=== PATIENT | female | born 1975 | race Caucasian/White ===

== ENCOUNTER 2018-04-23 11:36 | Inpatient (IN) | payer BC ==
[2018-04-23 13:00] VITALS: BMI 34.2
--- NOTE | 2018-04-23 17:07 | HP ---
COWS - Scale Resting Pulse: 0= [place] 80 or Below Sweatin=Flushed/Facial Moisture Restless Observation: 1= Difficult to Sit Still Pupil Size: 2= Moderately Dilated Bone or Joint Aches: 2= Severe Diffuse Aches Runny Nose/ Eye Tearin= None GI Upset > 30mins: 2= Nausea/Diarrhea Tremor Observation: 2= Slight Tremor Visible Yawning Observation: 1= 1-2x During Session Anxiety or Irritability: 1=Feels Anxious/Irritable Goose Flesh Skin: 0=Smooth Skin COWS Score: 13 Admission [facility] Chief Complaint: Heroin withdrawal symptoms. Allergies/Adverse Reactions: Allergies Allergy/AdvReac Type Severity Reaction Status Date / Time ibuprofen [From Motrin] Allergy Severe Hives Verified 04/23/18 16:18 Penicillins Allergy Severe Difficulty Verified 04/23/18 16:18 Breathing History of Present Illness: Patient presents for detox for Heroin withdrawal symptoms. Patient started injecting Heroin at age 33. Patient injects 6-7 bags daily. Last time she used was this morning. Patient denies hx of overdose but has hx of seizures. Last seizure 2 weeks ago. PMH includes HTN, Depression, SZD, Hep C (untreated), anxiety and DM. Denies SI/HI and/or suicide attempts. Last attempt at detox was years ago. Longest period of sobriety 9 months. Pt smokes cocaine since age 19 and smokes 7 bags daily. Last time she smoked was 3 days ago. Exam Limitations: No Limitations - Ebola screening Have you traveled outside of the country in the last 21 days: No Have you had contact with anyone from an Ebola affected area: No Have you been sick,other than usual withdrawal symptoms: No Do you have a fever: No - Review of Systems Constitutional: Chills, Night Sweats, Changes in sleep EENT: reports: No Symptoms Reported Respiratory: reports: No Symptoms reported Cardiac: reports: No Symptoms Reported GI: reports: Diarrhea, Nausea, Poor Fluid Intake, Abdominal cramping : reports: No Symptoms Reported Musculoskeletal: reports: Back Pain, Joint Pain, Muscle Pain Integumentary: reports: Sweating Neuro: reports: Headache, Seizure, Tremors Endocrine: reports: No Symptoms Reported Hematology: reports: No Symptoms Reported Psychiatric: reports: Orientated x3, Anxious, Depressed Patient History - Patient Medical History Hx Anemia: No Hx Asthma: Yes (Pt is on MDI) Hx Chronic Obstructive Pulmonary Disease (COPD): No Hx Cancer: No Hx Cardiac Disorders: No Hx Congestive Heart Failure: No Hx Hypertension: Yes (not on meds.) Hx Hypercholesterolemia: No Hx Pacemaker: No HX Cerebrovascular Accident: No Hx Seizures: Yes (last seizure 2 weeks ago) Hx Dementia: No Hx Diabetes: Yes Hx Gastrointestinal Disorders: No Hx Liver Disease: No Hx Genitourinary Disorders: No Hx Sexually Transmitted Disorders: No Hx Renal Disease (ESRD): No Hx Thyroid Disease: No Hx Human Immunodeficiency Virus (HIV): No Hx Hepatitis C: Yes (not treated) Hx Depression: Yes Hx Suicide Attempt: Yes (Tried to overdose on pills at age 16 yrs) Hx Bipolar Disorder: No Hx Schizophrenia: No - Patient Surgical History Past Surgical History: Yes Hx Appendectomy: Yes (1995) Other Surgical History: Tubal ligation 1999 - PPD History Previous Implant?: Yes Documented Results: Negative w/o proof Implanted On Prior R Admission?: No PPD to be Administered?: Yes - Reproductive History Patient is a Female of Child Bearing Age (11 -55 yrs old): Yes Patient : No - Smoking Cessation Smoking history: Current every day smoker Have you smoked in the past 12 months: Yes Aproximately how many cigarettes per day: 8 Hx Chewing Tobacco Use: No Initiated information on smoking cessation: Yes 'Breaking Loose' booklet given: 04/23/18 - Substance & Tx. History Hx Alcohol Use: No Hx Substance Use: Yes Substance Use Type: Cocaine, Heroin Hx Substance Use Treatment: Yes - Substances Abused Heroin Route: Injection Frequency: Daily Amount used: 6-7 bags Age of first use: 33 Date of Last Use: 04/23/18 Cocaine Route: Smoking Frequency: Daily Amount used: 5-6 bags Age of first use: 19 Date of Last Use: 04/20/18 Family Disease History - Family Disease History Family History: Denies Admission Physical Exam BHS - Vital Signs Vital Signs: Vital Signs - 24 hr 04/23/18 12:58 Temperature 98.3 F Pulse Rate 64 Respiratory 18 Rate Blood Pressure 116/67 - Physical General Appearance: Yes: Disheveled, Tremorous, Sweating, Anxious HEENTM: Yes: EOMI, Hearing grossly Normal, Normal ENT Inspection, Normocephalic , Normal Voice, RADHA, Pharynx Normal Respiratory: Yes: Chest Non-Tender, Lungs Clear, Normal Breath Sounds, No Respiratory Distress, No Accessory Muscle Use Neck: Yes: No masses,lesions,Nodules, Supple Breast: Yes: Breast Exam Deferred Cardiology: Yes: Regular Rhythm, Regular Rate, S1, S2 Abdominal: Yes: Normal Bowel Sounds, Non Tender, Soft Genitourinary: Yes: Within Normal Limits Back: Yes: Muscle Spasm Musculoskeletal: Yes: full range of Motion, Gait Steady, Back pain, Muscle Pain Extremities: Yes: Normal Range of Motion, Non-Tender, Tremors Neurological: Yes: substance abuse clinician II-XII NML intact, Fully Oriented, Alert, Motor Strength 5/5, Depressed Affect Integumentary: Yes: Normal Color, Warm, Moist, Track Hein Lymphatic: Yes: Within Normal Limits - Diagnostic (1) Opioid dependence with withdrawal Current Visit: Yes Status: Acute (2) Diabetes 1.5, managed as type 2 Current Visit: Yes Status: Chronic (3) HTN (hypertension) Current Visit: Yes Status: Chronic Qualifiers: Hypertension type: essential hypertension Qualified Code(s): I10 - Essential (primary) hypertension (4) Depression (emotion) Current Visit: Yes Status: Chronic Qualifiers: Depression Type: unspecified Qualified Code(s): F32.9 - Major depressive disorder, single episode, unspecified (5) Anxiety Current Visit: Yes Status: Acute (6) Hep C w/o coma, chronic Current Visit: Yes Status: Acute (7) Cocaine dependence Current Visit: Yes Status: Acute Qualifiers: Substance use status: uncomplicated Qualified Code(s): F14.20 - Cocaine dependence, uncomplicated Cleared for Admission [facility] - Detox or Rehab [facility] Level of Care: Medically Managed Detox Regimen/Protocol: Methadone [facility] Breath Alcohol Content Breath Alcohol Content: 0 Urine Pregancy Test - Result Urine Test Results: Negative- NO Line Present Urine Drug Screen - Results Drug Screen Negative: No Urine Drug Screen Results: ANGELINA-Cocaine, OPI-Opiates, OXY-Oxycodone
[2018-04-23] MEDS ORDERED: IBUPROFEN 400 MG TABLET (FP) PO PRN (17:25)
[2018-04-23] MEDS ORDERED: LOPERAMIDE HCL 2 MG CAPSULE PO PRN (17:25)
[2018-04-23] MEDS ORDERED: MAG HYDROX/AL HYDROX/SIMETH 30 ML UNIT-DOSE CUP PO PRN (17:25)
[2018-04-23] MEDS ORDERED: guaiFENesin/D-METHORPHAN HB 10 ML UNIT-DOSE CUPS PO PRN (17:25)
[2018-04-23] MEDS ORDERED: hydrOXYzine PAMOATE 50 MG CAPSULE (FP) PO PRN (17:25)
[2018-04-23] MEDS ORDERED: P-EPHED 60MG/TRIPROLIDI 2.5MG TABLET PO PRN (17:25)
[2018-04-23] MEDS ORDERED: MAGNESIUM HYDROX 2400MG/30ML ORAL SUSPENSION 30 ML CUP PO PRN (17:25)
[2018-04-23] MEDS ORDERED: MENTHOL/PHENOL 1 EACH UD MM PRN (17:25)
[2018-04-23] MEDS ORDERED: NICOTINE POLACRILEX 2 MG GUM BC PRN (17:25)
[2018-04-23] MEDS ORDERED: MAGNESIUM CITRATE 300 ML BOTTLE PO PRN (17:25)
[2018-04-23] MEDS ORDERED: ALBUTEROL SO4 8 GM HFA INHALER IH PRN (17:26)
[2018-04-23] MEDS ORDERED: METHADONE HCL 10 MG TABLET (FOR DETOX USE ONLY) PO ONE ×2 (18:15→23:00)
[2018-04-23] MEDS ORDERED: MELATONIN 5 MG TABLETS PO PRN (22:00)
[2018-04-23 22:47] LABS: URINE APPEARANCE SLCLOUDY; URINE BILIRUBIN NEGATIVE (<2.0 mg/dL); URINE COLOR YELLOW; URINE GLUCOSE (UA) NEGATIVE (NEGATIVE); URINE KETONE NEGATIVE (NEGATIVE); URINE LEUK ESTERASE NEGATIVE (NEGATIVE); URINE NITRITE NEGATIVE (NEGATIVE); URINE PROTEIN NEGATIVE (NEGATIVE); URINE UROBILINOGEN NEGATIVE mg/dL (0.2-1.0)
[2018-04-24] MEDS: ATORVASTATIN CA 10 MG TABLET (FP) PO SCH ×2 (00:39→22:42)
[2018-04-24] MEDS: levETIRAcetam 500 MG TABLET (FP) PO SCH ×3 (00:39→22:42)
[2018-04-24] MEDS: THIAMINE HCL 100 MG TABLET (FP) PO SCH ×2 (00:45→22:42)
[2018-04-24] MEDS ORDERED: cloNIDine HCL 0.1 MG TABLET PO ONE ×2 (06:55→19:01)
--- NOTE | 2018-04-24 06:58 | PN ---
BHS Progress Note Note: Patient's blood pressure is B/P 154/104. Patient is asymptomatic Laboratory Last Values Urine Color Yellow 04/23/18 21:30 Urine Appearance Slcloudy 04/23/18 21:30 Urine pH 6.0 (5.0-8.0) 04/23/18 21:30 Ur Specific [place] 1.019 (1.001-1.035) 04/23/18 21:30 Urine Protein Negative (NEGATIVE) 04/23/18 21:30 Urine Glucose (UA) Negative (NEGATIVE) 04/23/18 21:30 Urine Ketones Negative (NEGATIVE) 04/23/18 21:30 Urine Blood Negative (NEGATIVE) 04/23/18 21:30 Urine Nitrite Negative (NEGATIVE) 04/23/18 21:30 Urine Bilirubin Negative (<2.0 mg/dL) 04/23/18 21:30 Urine Urobilinogen Negative mg/dL (0.2-1.0) 04/23/18 21:30 Ur Leukocyte Esterase Negative (NEGATIVE) 04/23/18 21:30 Action: Clonidine 0.1mg tablet oral ordered
[2018-04-24] MEDS ORDERED: METHADONE HCL 10 MG TABLET (FOR DETOX USE ONLY) PO ONE (10:00)
[2018-04-24] MEDS: diazePAM 5 MG TABLET PO PRN (10:20)
[2018-04-24] MEDS: PRENATAL VITAMINS W/ FOLIC ACID TABLET (FP) PO SCH (10:20)
[2018-04-24] MEDS: ACETAMINOPHEN 325 MG TABLET (FP) PO PRN (10:21)
[2018-04-24] MEDS: NICOTINE 21 MG/24 HOURS TOPICAL PATCH TD SCH (10:21)
[2018-04-24 10:27] LABS: HEMATOCRIT 43.7 % (32.4-45.2); HEMOGLOBIN 14.5 GM/dL (10.7-15.3); MCH 27.5 pg (25.7-33.7); MCHC 33.1 g/dl (32.0-36.0); MEAN CELL VOLUME 82.9 fl (80-96); MEAN PLT VOLUME 9.5 fl (7.5-11.1); PLATELET COUNT 198 K/MM3 (134-434); RBC 5.27 M/mm3 (3.60-5.2); RDW 14.4 % (11.6-15.6); WHITE BLOOD COUNT 9.3 K/mm3 (4.0-10.0)
--- NOTE | 2018-04-24 11:07 | PN ---
BHS COWS - Scale Resting Pulse: 0= [place] 80 or Below Sweatin= Chills/Flushing Restless Observation: 3= Extraneous Movement Pupil Size: 1= Pupils >than Normal Bone or Joint Aches: 2= Severe Diffuse Aches Runny Nose/ Eye Tearin= Runny Nose/Eyes GI Upset > 30mins: 3= Vomiting/Diarrhea Tremor Observation of Outstretched Hands: 2= Slight Tremor Visible Yawning Observation: 1= 1-2x During Session Anxiety or Irritability: 2=Irritable/Anxious Goose Flesh Skin: 0=Smooth Skin COWS Score: 17 S Progress Note (SOAP) Subjective: alert,irritable,anxious,interrupted sleep,pain in the body and back,tremor Objective: 04/24/18 11:04 Vital Signs Temperature 98.2 F 04/24/18 09:43 Pulse Rate 58 L 04/24/18 09:43 Respiratory Rate 20 04/24/18 09:43 Blood Pressure 146/95 04/24/18 09:43 O2 Sat by Pulse Oximetry (%) ekg sinus bradycardia with sinus arrhythmia 53/min no chest pain,no sob,no dizziness Laboratory Last Values WBC 9.3 K/mm3 (4.0-10.0) 04/24/18 08:00 RBC 5.27 M/mm3 (3.60-5.2) H 04/24/18 08:00 Hgb 14.5 GM/dL (10.7-15.3) 04/24/18 08:00 Hct 43.7 % (32.4-45.2) 04/24/18 08:00 MCV 82.9 fl (80-96) 04/24/18 08:00 MCH 27.5 pg (25.7-33.7) 04/24/18 08:00 MCHC 33.1 g/dl (32.0-36.0) 04/24/18 08:00 RDW 14.4 % (11.6-15.6) 04/24/18 08:00 Plt Count 198 K/MM3 (134-434) 04/24/18 08:00 MPV 9.5 fl (7.5-11.1) 04/24/18 08:00 POC Glucometer 109 UNITS (80-120) 04/24/18 06:28 Urine Color Yellow 04/23/18 21:30 Urine Appearance Slcloudy 04/23/18 21:30 Urine pH 6.0 (5.0-8.0) 04/23/18 21:30 Ur Specific [place] 1.019 (1.001-1.035) 04/23/18 21:30 Urine Protein Negative (NEGATIVE) 04/23/18 21:30 Urine Glucose (UA) Negative (NEGATIVE) 04/23/18 21:30 Urine Ketones Negative (NEGATIVE) 04/23/18 21:30 Urine Blood Negative (NEGATIVE) 04/23/18 21:30 Urine Nitrite Negative (NEGATIVE) 04/23/18 21:30 Urine Bilirubin Negative (<2.0 mg/dL) 04/23/18 21:30 Urine Urobilinogen Negative mg/dL (0.2-1.0) 04/23/18 21:30 Ur Leukocyte Esterase Negative (NEGATIVE) 04/23/18 21:30 Assessment: 04/24/18 11:06 withdrawal symptom Plan: continue detox
[2018-04-24 11:13] LABS: ALBUMIN 3.4 g/dl (3.4-5.0); ANION GAP 9 (8-16); BILIRUBIN,TOTAL 0.6 mg/dL (0.2-1.0); BLOOD UREA NITROGEN 10 mg/dL (7-18); CALCIUM 9.4 mg/dL (8.5-10.1); CHLORIDE 106 mmol/L (98-107); CO2 24 mmol/L (21-32); CREATININE 0.7 mg/dL (0.55-1.02); GLUCOSE,RANDOM 92 mg/dL (74-106); SGPT/ALT 37 U/L (12-78); SODIUM 139 mmol/L (136-145)
[2018-04-24 11:14] LABS: ALK PHOS 58 U/L (45-117); TOT PROT 8.2 g/dl (6.4-8.2)
[2018-04-24 12:19] LABS: POTASSIUM 4.6 mmol/L (3.5-5.1); SGOT/AST 38 U/L (15-37)
--- NOTE | 2018-04-24 13:55 | CONSULT ---
[facility] Psychiatric Consult - Data Date of interview: 04/24/18 Admission source: [facility] Identifying data: Readmission to [facility] for this 42 y/o female seeking detox treatment on [facility] for heroin and cocaine (crack) dependence.Patient is single,a mother of four,domiciled,unemployed and supported by common-law spouse. Substance Abuse History: Confirmed by patient in this session.Smoking history: Current every day smoker. Have you smoked in the past 12 months: Yes. Aproximately how many cigarettes per day: 8. Hx Chewing Tobacco Use: No. Initiated information on smoking cessation: Yes. 'Breaking Loose' booklet given : 04/23/18. - Substance & Tx. History. Hx Alcohol Use: No. Hx Substance Use: Yes. Substance Use Type: Cocaine, Heroin. Hx Substance Use Treatment: Yes. - Substances Abused. Heroin. Route: Injection. Frequency: Daily. Amount used: 6-7 bags. Age of first use: 33. Date of Last Use: 04/23/18. Cocaine. Route: Smoking. Frequency: Daily. Amount used: 5-6 bags. Age of first use: 19. Date of Last Use: 04/20/18 Medical History: Remarkable for dyslipidemia,bronchial asthma,seizure disorder ( on levetiracetam),hepatitis C,hypertension and a disitant history of tubal ligation. Psychiatric History: No reported history of psychiatric hospitalizations.Patient admits to recent psychiatric OPD care at [facility] in the [place].Diagnosed with MDD and Anxiety Disorder.Briefly treated with sertraline and trazodone.Stopped taking these medications two months ago, according to self-report.Ms Fragoso indicates that she has been lost to follow-up " for some time." Remote history of suicide attempt (age 16) via overdose with pills. Physical/Sexual Abuse/Trauma History: Patient declines to discuss this domain. Additional Comment: Urine Drug Screen Results: ANGELINA-Cocaine, OPI-Opiates, OXY- Oxycodone.Noted. Mental Status Exam - Mental Status Exam Alert and Oriented to: Time, Place, Person Cognitive Function: Good Patient Appearance: Well Groomed (missing teeth,poor oral hygiene) Mood: Nervous, Withdrawn Affect: Mood Congruent Patient Behavior: Fatigued, Cooperative Speech Pattern: Clear Voice Loudness: Normal Thought Process: Goal Oriented Thought Disorder: Not Present Hallucinations: Denies Suicidal Ideation: Denies Homicidal Ideation: Denies Insight/Judgement: Poor Sleep: Poorly, Difficulty falling asleep Appetite: Good Gait/Station: Other (not observed ; supine during entire interview) Psychiatric Findings - Problem List ([place] 1, 2,3) (1) Opioid dependence with withdrawal Current Visit: Yes Status: Acute (2) Cocaine dependence Current Visit: Yes Status: Acute Qualifiers: Substance use status: uncomplicated Qualified Code(s): F14.20 - Cocaine dependence, uncomplicated (3) Nicotine dependence Current Visit: Yes Status: Acute (4) Substance induced mood disorder Current Visit: Yes Status: Acute (5) Insomnia Current Visit: Yes Status: Acute - Initial Treatment Plan Initial Treatment Plan: Psychoeducation.Sleep hygiene.Detoxification in progress.Seizures precautions.Patient wants trazodone at bedtime.Trazodone 50 mg po hs.Side effects/benefits discussed with the patient.Agres to this careplan.Observation.
[2018-04-24] MEDS ORDERED: CYCLOBENZAPRINE HCL 10 MG TABLET (FP) PO PRN (19:02)
--- NOTE | 2018-04-24 19:02 | EKG ---
Test Reason : Blood Pressure : / mmHG Vent. Rate : 053 BPM Atrial Rate : 053 BPM P-R Int : 160 ms QRS Dur : 086 ms QT Int : 442 ms P-R-T Axes : 044 035 030 degrees QTc Int : 414 ms SINUS BRADYCARDIA WITH SINUS ARRHYTHMIA OTHERWISE NORMAL ECG NO PREVIOUS ECGS AVAILABLE Confirmed by MD NABIL, MARGY ([id number]) on 04/24/2018 7:01:35 PM Referred By: Confirmed By:MARGY FERRER MD
[2018-04-24] MEDS: cloNIDine HCL 0.1 MG TABLET PO SCH (22:42)
[2018-04-24] MEDS: traZODone HCL 50 MG TABLET (FP) PO SCH (22:42)
[2018-04-25] MEDS ORDERED: METHADONE HCL 5 MG TABLET (FOR DETOX USE ONLY) PO ONE (10:00)
[2018-04-25] MEDS: levETIRAcetam 500 MG TABLET (FP) PO SCH ×2 (10:22→22:31)
[2018-04-25] MEDS: cloNIDine HCL 0.1 MG TABLET PO SCH ×2 (10:22→22:31)
[2018-04-25] MEDS: NICOTINE 21 MG/24 HOURS TOPICAL PATCH TD SCH (10:22)
[2018-04-25] MEDS: PRENATAL VITAMINS W/ FOLIC ACID TABLET (FP) PO SCH (10:22)
[2018-04-25] MEDS: ACETAMINOPHEN 325 MG TABLET (FP) PO PRN ×3 (10:23→20:26)
[2018-04-25] MEDS: diazePAM 5 MG TABLET PO PRN ×3 (10:23→20:26)
--- NOTE | 2018-04-25 14:18 | PN ---
Addendum entered and electronically signed by Shelly Randall NP 04/25/18 14: 31: CIWA entered in error. Patient symptoms are r/t opiate withdrawal. Addendum entered and electronically signed by Shelly Randall NP 04/25/18 14: 19: Original Note: [facility] CIWA - CIWA Score Nausea/Vomitin-Mild Nausea/No Vomiting Muscle Tremors: 4-Moderate,w/Arms Extend Anxiety: 1-Mildly Anxious Agitation: 1-Slight > Activity Paroxysmal Sweats: 1-Minimal Palms Moist Orientation: 0-Oriented Tacttile Disturbances: 0-None Auditory Disturbances: 0-None Visual Disturbances: 0-None Headache: 0-None Present CIWA-Ar Total Score: 8
--- NOTE | 2018-04-25 14:25 | PN ---
BHS Progress Note (SOAP) Subjective: C/o feeling uncomfortable and having withdrawal symptoms. States (+) nausea but tolerating diet. Denies headache, weakness, CP/SOB. Objective: 04/25/18 14:21 Alert and oriented x 3. Lungs CTA. (+) tremors hands upon extension. BHG (=). Slight perspiration noted on face. Abdomen soft/non-tender. Bowel sounds increased. Vital Signs 04/25/18 04/25/18 07:20 10:00 Temperature 97.7 F 98.6 F Pulse Rate 55 L 64 Respiratory 18 16 Rate Blood Pressure 148/92 137/100 Assessment: 04/25/18 14:29 Opiate withdrawal. Scored '9' on COWS. Hypertension. 04/25/18 14:29 Plan: Continue detox protocol. Continue current medications.
--- NOTE | 2018-04-25 14:27 | PN ---
BHS COWS - Scale Resting Pulse: 0= [place] 80 or Below Sweatin= Beads of Sweat on Face Restless Observation: 0= Sits Still Pupil Size: 1= Pupils >than Normal Bone or Joint Aches: 0= None Runny Nose/ Eye Tearin= None GI Upset > 30mins: 2= Nausea/Diarrhea (w/o diarrhea.) Tremor Observation of Outstretched Hands: 2= Slight Tremor Visible Yawning Observation: 0= None Anxiety or Irritability: 1=Feels Anxious/Irritable Goose Flesh Skin: 0=Smooth Skin COWS Score: 9
[2018-04-25] MEDS: ATORVASTATIN CA 10 MG TABLET (FP) PO SCH (22:31)
[2018-04-25] MEDS: THIAMINE HCL 100 MG TABLET (FP) PO SCH (22:31)
[2018-04-25] MEDS: traZODone HCL 50 MG TABLET (FP) PO SCH (22:31)
[2018-04-26] MEDS: diazePAM 5 MG TABLET PO PRN (08:00)
--- NOTE | 2018-04-26 09:22 | PN ---
[facility] Progress Note Note: patient had unwitness fall while taking a shower, stated she feel dizziness ,and kneel down on her knees and buttocks denied head injury alert,oriented x 3 no obvious injury noted bp 136/91,p97.r20,t98.6 impression unwitness fall treatment initiate fall protocol 1 fall precaution to er for evaluation endorsed to Dr Angelina Eastman to be trasporte by [facility]
[2018-04-26] MEDS: NICOTINE 21 MG/24 HOURS TOPICAL PATCH TD SCH (10:00)
[2018-04-26] MEDS ORDERED: METHADONE HCL 5 MG TABLET (FOR DETOX USE ONLY) PO ONE (10:00)
[2018-04-26 10:04] VITALS: BP 149/82; PULSE 68; TEMP 97.6
[2018-04-26] MEDS: cloNIDine HCL 0.1 MG TABLET PO SCH (10:05)
[2018-04-26] MEDS: PRENATAL VITAMINS W/ FOLIC ACID TABLET (FP) PO SCH (10:05)
[2018-04-26] MEDS: levETIRAcetam 500 MG TABLET (FP) PO SCH (10:05)
--- NOTE | 2018-04-26 10:22 | PN ---
Psychiatric Progress Note Vital Signs: Vital Signs Period Temp Pulse Resp BP Sys/Grimaldo Pulse Ox Last 24 Hr 97.3 F-97.9 F 64-88 16-19 110-149/70-96 Date of Session: 04/26/18 Chief Complaint:: anxiety, insomnia HPI: Patient reports has been takingt prior to admission: Trazodone 100mg po qhs. Vistaril 100mg po tid Current Medications: Active Medications Generic Name Dose Route Start Last Admin Trade Name Freq PRN Reason Stop Dose Admin Acetaminophen 650 mg 04/23/18 17:25 04/25/18 20:26 Tylenol - PO 650 mg Q4H PRN Administration FEVER Al Hydroxide/Mg Hydroxide 30 ml 04/23/18 17:25 Mylanta Oral Suspension - PO Q6H PRN DYSPEPSIA Albuterol Sulfate 2 puff 04/23/18 17:26 Ventolin Hfa Inhaler - IH Q4H PRN ASTHMA Atorvastatin Calcium 10 mg 04/23/18 22:00 04/25/18 22:31 Lipitor - PO 10 mg HS AMBER Administration Clonidine 0.1 mg 04/24/18 22:00 04/26/18 10:05 Catapres - PO 0.1 mg BID AMBER Administration Cyclobenzaprine HCl 10 mg 04/24/18 19:02 Flexeril - PO TID PRN MUSCLE SPASMS Diazepam 10 mg 04/23/18 17:27 04/26/18 08:00 Valium - PO 04/26/18 17:26 10 mg Q4H PRN Administration WITHDRAWAL(CONT SUBST) Eucalyptus/Menthol/Phenol/Sorbitol 1 each 04/23/18 17:25 Cepastat Lozenge - MM Q4H PRN SORE THROAT Guaifenesin 10 ml 04/23/18 17:25 Robitussin Dm - PO Q6H PRN COUGH Hydroxyzine Pamoate 100 mg 04/26/18 14:00 Vistaril - PO TID AMBER Levetiracetam 500 mg 04/23/18 22:00 04/26/18 10:05 Keppra - PO 500 mg BID AMBER Administration Loperamide HCl 4 mg 04/23/18 17:25 Imodium - PO Q6H PRN DIARRHEA Magnesium Citrate 300 ml 04/23/18 17:25 Citroma - PO Q48H PRN CONSTIPATION Magnesium Hydroxide 30 ml 04/23/18 17:25 Milk Of Magnesia - PO DAILY PRN CONSTIPATION Melatonin 5 mg 04/23/18 22:00 Melatonin PO HS PRN INSOMNIA Metformin HCl 500 mg 04/24/18 10:00 04/26/18 08:00 Glucophage Xr - PO 500 mg ACBK AMBER Administration Methadone HCl 5 mg 04/28/18 06:00 Dolophine - PO 04/28/18 06:01 ONCE@0600 ONE Methadone HCl 10 mg 04/27/18 10:00 Dolophine - PO 04/27/18 10:01 ONCE ONE Nicotine 21 mg 04/24/18 10:00 04/25/18 10:22 Nicoderm Patch - TD 21 mg DAILY AMBER Administration Nicotine Polacrilex 2 mg 04/23/18 17:25 Nicorette Gum - BC Q2H PRN NICOTINE REPLACEMENT RX Multivit/Folic Acid/Iron 1 tab 04/24/18 10:00 04/25/18 10:22 Vitamins (Sjr) - PO 1 tab DAILY AMBER Administration Pseudoephedrine/Triprolidine 1 combo 04/23/18 17:25 Actifed - PO TID PRN NASAL CONGESTION Thiamine HCl 100 mg 04/23/18 22:00 04/25/18 22:31 Vitamin B1 - PO 100 mg HS AMBER Administration Trazodone HCl 100 mg 04/26/18 22:00 Desyrel - PO HS AMBER Medication(s) Change(s): Trazodone 100mg po qhs. Vistaril 100mg po tid Mental Status Exam - Mental Status Exam Alert and Oriented to: Person Cognitive Function: Fair Patient Appearance: Unkempt Mood: Apprehensive Affect: Mood Congruent Patient Behavior: Cooperative Speech Pattern: Appropriate Voice Loudness: Mildly Soft/Quiet Thought Process: Goal Oriented Thought Disorder: Being Controlled Hallucinations: Denies Suicidal Ideation: Denies Homicidal Ideation: Denies Insight/Judgement: Fair Sleep: Difficulty falling asleep Appetite: Fair Muscle strength/Tone: Mild Hypotonicity Gait/Station: Shuffling Additional Comments: Trazodone 100mg po qhs. Vistaril 100mg po tid Psychiatric Treatment Plan - Problem List (1) Anxiety Current Visit: Yes (2) Cocaine dependence Current Visit: Yes Qualifiers: Substance use status: uncomplicated Qualified Code(s): F14.20 - Cocaine dependence, uncomplicated (3) Hep C w/o coma, chronic Current Visit: Yes (4) Hepatitis C Current Visit: Yes (5) Nicotine dependence Current Visit: Yes (6) Opioid dependence with withdrawal Current Visit: Yes (7) Substance induced mood disorder Current Visit: Yes (8) Diabetes 1.5, managed as type 2 Current Visit: Yes (9) HTN (hypertension) Current Visit: Yes Qualifiers: Hypertension type: essential hypertension Qualified Code(s): I10 - Essential (primary) hypertension Initial treatment plan: Trazodone 100mg po qhs. Vistaril 100mg po tid
[2018-04-26] MEDS ORDERED: hydrOXYzine PAMOATE 50 MG CAPSULE (FP) PO SCH (14:00)
[2018-04-26] MEDS ORDERED: traZODone HCL 100 MG TABLET (FP) PO SCH (22:00)
[2018-04-27] MEDS ORDERED: METHADONE HCL 10 MG TABLET (FOR DETOX USE ONLY) PO ONE (10:00)
[2018-04-28] MEDS ORDERED: METHADONE HCL 5 MG TABLET (FOR DETOX USE ONLY) PO ONE (06:00)
== END 2018-04-26 10:10 | disposition short-term general hospital (02) | DRG 773 ==
LOC: YASAS 11:36 → Y6N 17:53
PROVIDERS: ADMIT Surgery; ATTEND Surgery
PROC: HZ2ZZZZ Detoxification Services for Substance Abuse Treatment (ICD-10-PCS; principal; 2018-04-23)
DX: F11.23 Opioid dependence with withdrawal (principal); F14.20 Cocaine dependence, uncomplicated; F17.210 Nicotine dependence, cigarettes, uncomplicated; F19.282 Other psychoactive substance dependence with psychoactive substance-induced sleep disorder; F41.9 Anxiety disorder, unspecified; I10 Essential (primary) hypertension; E11.9 Type 2 diabetes mellitus without complications; B18.2 Chronic viral hepatitis C; G47.00 Insomnia, unspecified; E78.5 Hyperlipidemia, unspecified; J45.909 Unspecified asthma, uncomplicated; G40.909 Epilepsy, unspecified, not intractable, without status epilepticus; R00.0 Tachycardia, unspecified; I49.9 Cardiac arrhythmia, unspecified; Z88.0 Allergy status to penicillin; Z88.6 Allergy status to analgesic agent; Z79.84 Long term (current) use of oral hypoglycemic drugs; W18.39XA Other fall on same level, initial encounter; Y93.E1 Activity, personal bathing and showering; Y92.231 Patient bathroom in hospital as the place of occurrence of the external cause; Z91.5 Personal history of self-harm
CPT/HCPCS: 36415; 80053; 81003; 82962; 85027; 86593; 93005; 93010; J0735